=== PATIENT | female | born 1955 | race Caucasian/White ===

== ENCOUNTER 2018-08-13 10:39 | Emergency (ER) | payer OTHER ==
[~2018-08-13] VITALS: Ht 175.3 cm; Wt 99.8 kg
[~2018-08-13 10:39] MED LIST: PRINIVIL10 MG
[2018-08-13 10:48] VITALS: BP 153/72
[2018-08-13] MEDS ORDERED: ADVAIR HFA 230M12 GM INH (10:49)
[2018-08-13] MEDS ORDERED: ASPIR 8181 MG PO (10:49)
[2018-08-13] MEDS ORDERED: COREG12.5 MG PO (10:50)
[2018-08-13] MEDS ORDERED: PREDNISONE50 MG PO (11:13)
[2018-08-13] MEDS ORDERED: AUGMENTIN 875-1 EACH PO (11:13)
== END 2018-08-13 11:20 | disposition home or self-care (01) ==
LOC: M.ERS 10:39
DX: J32.9 Chronic sinusitis, unspecified (principal); J44.9 Chronic obstructive pulmonary disease, unspecified

== ENCOUNTER 2019-03-22 16:20 | Emergency (ER) | payer OTHER ==
[~2019-03-22] VITALS: Ht 177.8 cm; Wt 102.5 kg
[~2019-03-22 16:20] MED LIST changes: +ADVAIR HFA 230M12 GM INH; +ASPIR 8181 MG PO; +AUGMENTIN 875-1 EACH PO; +COREG12.5 MG PO; +PREDNISONE50 MG PO
[2019-03-22] MEDS ORDERED: LEVAQUIN 750 M750 MG PO (16:58)
[2019-03-22 17:38] VITALS: BP 142/58
--- NOTE | 2019-03-23 10:32 | EKG ---
[place] [address] ELECTROCARDIOGRAM REPORT Name: ZULLY BAUTISTA [facility] [id number] Admission: 03/22/19 Attend Phys: Discharge: 03/22/19 Date of : 59 Report #: [id number] THIS REPORT FOR: //name// [facility] ED Test Date: 2019-03-22 Test Time: 16:28:41 Pat Name: ZULLY BAUTISTA Department: Room: Gender: F [employer]: ARIAN : 1955 Requested By: Ahsan Aleman Order Number: [id number] Reading MD: Frankie Ha Measurements Intervals [place] Rate: 73 P: 53 DE: 142 QRS: 30 QRSD: 86 T: 22 QT: 360 QTc: 397 Interpretive Statements Sinus rhythm No previous ECG available for comparison Electronically Signed On 03-23-2019 10:32:15 CDT by Frankie Ha [email or web address] <ELECTRONICALLY SIGNED> By: Frankie Ha MD, [facility] 03/23/19 1032 1628 1628 Frankie Ha MD, FACC /EPI
== END 2019-03-22 17:40 | disposition home or self-care (01) ==
LOC: M.ERS 16:20
DX: H66.91 Otitis media, unspecified, right ear (principal); J32.9 Chronic sinusitis, unspecified; J44.9 Chronic obstructive pulmonary disease, unspecified; F17.210 Nicotine dependence, cigarettes, uncomplicated; Z88.8 Allergy status to other drugs, medicaments and biological substances